=== PATIENT | male | born 1960 | race Caucasian/White ===

== ENCOUNTER 2016-06-07 05:38 | Inpatient (IN) | payer OTHER ==
[2016-06-06 10:37] VITALS: BMI 29.4
[~2016-06-07] VITALS: Ht 165.1 cm; Wt 82.8 kg
[2016-06-07] VITALS (29 sets, daily range): BP systolic 108–154; BP diastolic 61–95; PULSE 67–94; RESP 10–26; Ht 165.1 cm; Wt 82.8 kg
[2016-06-07] MEDS ORDERED: ROCURONIUM 50 MG INJ ONE (07:00)
[2016-06-07] MEDS ORDERED: LISI10TA2 PO (07:09)
[2016-06-07] MEDS ORDERED: LOSA25TA5 PO (07:09)
[2016-06-07] MEDS ORDERED: BUTA1TAB48 PO (07:09)
[2016-06-07] MEDS ORDERED: SUCCINYLCHOLINE CHLORIDE 100 MG/5 ML SYG IV ONE (08:08)
[2016-06-07] MEDS ORDERED: PROPOFOL 20 ML ONE ×3 (08:08→08:33)
[2016-06-07] MEDS ORDERED: MIDAZOLAM 1 MG/ML 2 ML INJ ONE (08:08)
[2016-06-07] MEDS ORDERED: morphine SULFATE/PF (10 MG/10 ML) INJ ONE (08:08)
[2016-06-07] MEDS ORDERED: LIDOCAINE 2% (SDV) 5 ML INJ ONE (08:08)
[2016-06-07] MEDS ORDERED: FENTAnyl 50 MCG/ML VIAL ONE (08:19)
--- NOTE | 2016-06-07 08:32 | HPN ---
Date/Time of Note Date/Time of Note DATE: 06/07/16 TIME: 08:30 Interval H&P Admission Note Pt. seen H&P reviewed: No system changes TEODORO BURGOS MD Jun 07, 2016 08:32
[2016-06-07] MEDS ORDERED: CEFAZOLIN 1 GM INJ ONE (08:44)
[2016-06-07] MEDS ORDERED: POLYMYXIN/BACITRACIN 1L IRRIG IRR ONE (09:26)
[2016-06-07] MEDS ORDERED: EPHEDrine SULFATE 50 MG/5 ML SYG ONE (09:44)
[2016-06-07] MEDS ORDERED: DEXAMETHASONE 4 MG/ML 1 ML INJ ONE (09:46)
[2016-06-07] MEDS ORDERED: METOCLOPRAMIDE 10 MG INJ ONE (09:46)
[2016-06-07] MEDS ORDERED: ONDANSETRON 4 MG INJ ONE (09:46)
[2016-06-07] MEDS ORDERED: NEOSTIGMINE 3 MG/3 ML SYRINGE ONE (10:52)
[2016-06-07] MEDS ORDERED: GLYCOPYRROLATE 1 MG INJ ONE (10:52)
[2016-06-07] MEDS ORDERED: FENTAnyl 50 MCG/ML VIAL IV PRN (11:00)
[2016-06-07] MEDS ORDERED: HYDROmorphONE (0.2 MG/ML) 10ML SYG IV PRN (11:00)
[2016-06-07] MEDS ORDERED: DIPHENHYDRAMINE 50 MG INJ IV PRN ×2 (11:00)
[2016-06-07] MEDS ORDERED: ACETAMINOPHEN 500 MG TAB PO PRN (11:00)
[2016-06-07] MEDS ORDERED: PROCHLORPERAZINE 10 MG INJ IV PRN (11:00)
[2016-06-07] MEDS ORDERED: HYDROCODONE/APAP (5/325) TAB PO PRN (11:00)
[2016-06-07] MEDS ORDERED: ONDANSETRON 4 MG INJ IV PRN ×2 (11:00→17:00)
[2016-06-07] MEDS ORDERED: NALOXONE (0.4 MG/ML) INJ IV PRN (11:00)
[2016-06-07] MEDS ORDERED: MEPERIDINE 25 MG INJ IV PRN (11:00)
[2016-06-07 12:30] LABS: ADD UMIC NO; URINE BILIRUBIN (Dip) NEGATIVE (NEGATIVE); URINE BLOOD (Dip) NEGATIVE (NEGATIVE); URINE COLOR LT. YELLOW (YELLOW); URINE GLUCOSE (Dip) NEGATIVE (NEGATIVE); URINE KETONES (Dip) NEGATIVE (NEGATIVE); URINE LEUKOCYTE ESTERASE (Dip) NEGATIVE (NEGATIVE); URINE NITRITE (Dip) NEGATIVE (NEGATIVE); URINE TOTAL PROTEIN (Dip) NEGATIVE (NEGATIVE); URINE UROBILINOGEN (Dip) 0.2 E.U./dL (0.1-1.0)
[2016-06-07] MEDS ORDERED: DOCUSATE SODIUM 100 MG CAP PO PRN (12:30)
[2016-06-07] MEDS ORDERED: CEFAZOLIN 1 GM/50 ML (PMX) 50 ML IVPB ONE (12:39)
[2016-06-07] MEDS: CEFAZOLIN 1 GM/50 ML (PMX) 50 ML IVPB SCH ×2 (12:42→21:30)
[2016-06-07 12:55] LABS: BASOPHILS % 0.4 % (0.0-2.0); EOSINOPHILS # 0.1 10^3/ul (0.0-0.5); EOSINOPHILS % 1.8 % (0.0-7.0); HEMATOCRIT 39.3 % (42.0-52.0); HEMOGLOBIN 13.2 g/dl (14.0-18.0); LYMPHOCYTES # 1.5 10^3/ul (0.8-2.9); LYMPHOCYTES % 21.8 % (15.0-51.0); MEAN CORPUSCULAR HEMOGLOBIN 30.4 pg (29.0-33.0); MEAN CORPUSCULAR HGB CONC 33.5 g/dl (32.0-37.0); MEAN CORPUSCULAR VOLUME 90.7 fl (82.0-101.0); MEAN PLATELET VOLUME 10.3 fl (7.4-10.4); MONOCYTE # 0.2 10^3/ul (0.3-0.9); MONOCYTES % 3.4 % (0.0-11.0); NEUTROPHIL # 4.9 10^3/ul (1.6-7.5); NEUTROPHILS % 72.6 % (39.0-77.0); PLATELET COUNT 251 10^3/UL (140-440); RED BLOOD COUNT 4.34 10^6/ul (4.70-6.10); RED CELL DISTRIBUTION WIDTH 13.6 % (11.5-14.5); UNCORRECTED WBC 6.8 10^3/ul (4.8-10.8); WHITE BLOOD COUNT 6.8 10^3/ul (4.8-10.8)
[2016-06-07 12:56] LABS: POTASSIUM 4.1 mmol/L (3.5-5.1)
[2016-06-07 12:58] LABS: CONDITION 1
[2016-06-07] MEDS: ASPIRIN 325 MG TAB PO SCH ×2 (13:09→20:51)
[2016-06-07] MEDS: LACTATED RINGER'S 1,000 ML IV* SCH ×2 (13:47→23:49)
--- NOTE | 2016-06-07 14:14 | RADRPT ---
PROCEDURE: XR right knee. CLINICAL INDICATION: Knee pain. TECHNIQUE: AP and lateral views are available for review. COMPARISON: No comparison available FINDINGS: There is an external brace in place. There is a postoperative total knee replacement. There is no evidence of loosening of the prosthesis . The osseous structures are normal in mineralization, architecture and alignment No acute fracture or dislocation is seen.No osseous lesions are identified. There are postoperative soft tissue spaulding es . There are [address] IMPRESSION: Unremarkable postoperative total knee replacement. Postoperative soft tissue changes RPTAT: HGDB .Kurt Cabrera MD, Date Time Electronically viewed and signed by .Kurt Cabrera MD, on 06/07/2016 14:14 .B/
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
[2016-06-07] MEDS ORDERED: ACET/BUTAL/CAFF TAB PO PRN (15:00)
[2016-06-07] MEDS ORDERED: NALBUPHINE HCL (10 MG/1 ML) INJ IV PRN (17:00)
[2016-06-07] MEDS ORDERED: HYDROmorphONE 1 MG/ML SYG IV PRN (17:00)
[2016-06-07] MEDS: HYDROmorphONE 1 MG/ML SYG IV PRN ×2 (17:22→23:48)
[2016-06-08] MEDS: HYDROmorphONE 1 MG/ML SYG IV PRN ×7 (04:20→22:46)
[2016-06-08 05:00] VITALS: BP 112/74; PULSE 65; RESP 18
[2016-06-08 05:04] LABS: BASOPHILS % 0.4 % (0.0-2.0); HEMATOCRIT 32.9 % (42.0-52.0); HEMOGLOBIN 10.9 g/dl (14.0-18.0); LYMPHOCYTES # 1.5 10^3/ul (0.8-2.9); LYMPHOCYTES % 15.6 % (15.0-51.0); MEAN CORPUSCULAR HEMOGLOBIN 30.4 pg (29.0-33.0); MEAN CORPUSCULAR HGB CONC 33.3 g/dl (32.0-37.0); MEAN CORPUSCULAR VOLUME 91.3 fl (82.0-101.0); MEAN PLATELET VOLUME 10.9 fl (7.4-10.4); MONOCYTE # 1.1 10^3/ul (0.3-0.9); MONOCYTES % 11.3 % (0.0-11.0); NEUTROPHIL # 7.1 10^3/ul (1.6-7.5); NEUTROPHILS % 72.7 % (39.0-77.0); PLATELET COUNT 241 10^3/UL (140-440); RED CELL DISTRIBUTION WIDTH 13.4 % (11.5-14.5); UNCORRECTED WBC 9.8 10^3/ul (4.8-10.8); WHITE BLOOD COUNT 9.8 10^3/ul (4.8-10.8)
[2016-06-08 05:20] LABS: POTASSIUM 4.5 mmol/L (3.5-5.1)
[2016-06-08 05:28] LABS: CONDITION 1
[2016-06-08] MEDS: CEFAZOLIN 1 GM/50 ML (PMX) 50 ML IVPB SCH (05:54)
[2016-06-08] MEDS: PANTOPRAZOLE (EC) 40 MG TAB PO SCH (05:54)
[2016-06-08 07:52] VITALS: BP 106/56; RESP 20
[2016-06-08] MEDS: LACTATED RINGER'S 1,000 ML IV* SCH (08:30)
[2016-06-08] MEDS ORDERED: HYDROmorphONE 1 MG/ML SYG IV STA (08:54)
[2016-06-08] MEDS ORDERED: DIPHENHYDRAMINE 50 MG INJ IV ONE (09:00)
[2016-06-08] MEDS: LOSARTAN 25 MG TAB PO SCH (09:00)
[2016-06-08] MEDS: ASPIRIN 325 MG TAB PO SCH ×2 (10:22→20:49)
[2016-06-08] MEDS ORDERED: HYDROmorphONE 1 MG/ML SYG IV PRN (13:00)
[2016-06-08] MEDS: OXYCODONE/ACETAMINOPHEN (5/325) TAB PO PRN ×2 (18:04→23:28)
--- NOTE | 2016-06-08 18:43 | CONS ---
Date/Time of Note Date/Time of Note DATE: 06/08/16 TIME: 18:38 Assessment/Plan Assessment/Plan Problems: (1) Anemia Status: Acute Comment: Drop in H/H after surgery likely cause of lightheadedness. Denies chest pain. Will monitor and transfuse if levels continue to drop Qualifiers: Anemia type: other cause (2) Essential (primary) hypertension Status: Chronic Comment: Decent blood pressure control. No documented low BP (3) Post-traumatic osteoarthritis of right knee Status: Resolved (4) Aftercare following right knee joint replacement surgery Status: Acute Comment: Pain management and PT per orthopedic team. Consultation Date/Type/Reason Admit Date/Time Jun 07, 2016 at 05:38 Initial Consult Date 06/07/16 Type of Consultation: Medicine Referring Provider: TEODORO BURGOS MD 24 HR Interval Summary Free Text/Dictation C/O significant throbbing knee pain. Also lightheaded during physical therapy today. States blood pressure low and unable to walk Exam/Review of Systems Vital Signs Vitals Vital Signs Date Time Temp Pulse Resp B/P Pulse Ox O2 Delivery O2 Flow Rate FiO2 06/08/16 08:00 Nasal Cannula 2.0 06/08/16 07:52 97.3 75 20 106/56 96 Intake and Output 06/07/16 06/07/16 06/08/16 15:00 23:00 07:00 Intake Total 2700 ml 400 ml 1500 ml Output Total 1330 ml 1400 ml 1010 ml Balance 1370 ml -1000 ml 490 ml Exam Constitutional: alert, oriented, well developed Neck: supple Respiratory: clear to auscultation Cardiovascular: nl pulses, regular rate and rhythm Gastrointestinal: soft Musculoskeletal: other (Right lower extremity in bandage and brace.) Results Vitals and Labs reviewed Result Diagram: 06/08/16 0435 06/08/16 0435 Results 24 hrs Laboratory Tests Test 06/08/16 04:35 Anion Gap 16 Basophils # 0.0 Basophils % 0.4 Blood Morphology Comment Carbon Dioxide Level 25 Chloride Level 105 Eosinophils # 0.0 Eosinophils % 0.0 Hematocrit 32.9 L Hemoglobin 10.9 L Lymphocytes # 1.5 Lymphocytes % 15.6 Mean Corpuscular Hemoglobin 30.4 Mean Corpuscular Hemoglobin Concent 33.3 Mean Corpuscular Volume 91.3 Mean Platelet Volume 10.9 H Monocytes # 1.1 H Monocytes % 11.3 H Neutrophils # 7.1 Neutrophils % 72.7 Nucleated Red Blood Cells # 0.0 Nucleated Red Blood Cells % 0.0 Platelet Count 241 Potassium Level 4.5 Red Blood Count 3.60 L Red Cell Distribution Width 13.4 Sodium Level 141 White Blood Count 9.8 # Medications Medications Current Medications Aspirin (Aspirin) 325 mg BID PO Last administered on 06/08/16 10:22; Admin Dose 325 MG; Start 06/07/16 at 12:45 Oxycodone/ Acetaminophen (Percocet (5/ 325)) 1 tab Q4H PRN PO PAIN Last administered on 06/08/16 18:04; Admin Dose 1 TAB; Start 06/07/16 at 12:30 Docusate Sodium (Colace) 100 mg TID PRN PO CONSTIPATION; Start 06/07/16 at 12: 30 Losartan Potassium (Cozaar) 25 mg DAILY PO ; Start 06/08/16 at 09:00 Pantoprazole (Protonix Tab) 40 mg DAILY@06 PO Last administered on 06/08/16 05 :54; Admin Dose 40 MG; Start 06/08/16 at 06:00 Acetaminophen/ Butalbital/ Caffeine (Fioricet) 2 tab Q4H PRN PO HEADACHE; Start 06/07/16 at 15:00 Hydromorphone HCl (Dilaudid) 0.4 mg Q2H PRN IV PAIN LEVEL 1-5; Start 06/08/16 at 13:00; Stop 06/09/16 at 12:59 Hydromorphone HCl (Dilaudid) 0.6 mg Q2H PRN IV SEVERE PAIN LEVEL 7-10 Last administered on 06/08/16 16:22; Admin Dose 0.6 MG; Start 06/08/16 at 13:00; Stop 06/09/16 at 12:59 IRIS ODELL MD Jun 08, 2016 18:43
[2016-06-08 20:00] VITALS: BP 124/71; RESP 16
[2016-06-08 23:16] VITALS: BP 143/73; RESP 18
[2016-06-09] MEDS: HYDROmorphONE 1 MG/ML SYG IV PRN ×8 (01:16→22:58)
[2016-06-09] MEDS: PANTOPRAZOLE (EC) 40 MG TAB PO SCH (05:42)
[2016-06-09 06:49] LABS: BASOPHILS % 0.3 % (0.0-2.0); EOSINOPHILS # 0.3 10^3/ul (0.0-0.5); HEMATOCRIT 30.3 % (42.0-52.0); HEMOGLOBIN 10.1 g/dl (14.0-18.0); LYMPHOCYTES # 2.7 10^3/ul (0.8-2.9); LYMPHOCYTES % 29.5 % (15.0-51.0); MEAN CORPUSCULAR HEMOGLOBIN 30.7 pg (29.0-33.0); MEAN CORPUSCULAR HGB CONC 33.5 g/dl (32.0-37.0); MEAN CORPUSCULAR VOLUME 91.6 fl (82.0-101.0); MEAN PLATELET VOLUME 10.8 fl (7.4-10.4); MONOCYTES % 10.9 % (0.0-11.0); NEUTROPHIL # 5.1 10^3/ul (1.6-7.5); NEUTROPHILS % 56.3 % (39.0-77.0); PLATELET COUNT 230 10^3/UL (140-440); RED BLOOD COUNT 3.31 10^6/ul (4.70-6.10); RED CELL DISTRIBUTION WIDTH 13.5 % (11.5-14.5)
[2016-06-09 07:12] LABS: CONDITION 1
[2016-06-09 07:37] VITALS: BP 143/77; RESP 18
[2016-06-09 08:00] VITALS: BP 120/70; PULSE 78; RESP 22
[2016-06-09] MEDS: ASPIRIN 325 MG TAB PO SCH ×2 (08:09→21:21)
[2016-06-09] MEDS: LOSARTAN 25 MG TAB PO SCH (08:47)
[2016-06-09] MEDS ORDERED: ONDANSETRON 4 MG INJ IV PRN ×2 (11:30→12:00)
[2016-06-09] MEDS ORDERED: HYDROmorphONE 1 MG/ML SYG IV STA ×2 (13:29→16:57)
[2016-06-09] MEDS ORDERED: HYDROmorphONE 1 MG/ML SYG IV PRN ×3 (13:30)
--- NOTE | 2016-06-09 17:45 | CONS ---
Date/Time of Note Date/Time of Note DATE: 06/09/16 TIME: 14:15 Assessment/Plan Assessment/Plan Problems: (1) Essential (primary) hypertension Status: Chronic Comment: Good control. No hypotension noted (2) Aftercare following right knee joint replacement surgery Status: Acute Comment: Suspect patients expectations of post op well being are unrealistic. Complain of unrelenting pain. Drain removed by Orthopedist (3) Anemia Status: Acute Comment: H/H stable. No evidence of further blood loss. Qualifiers: Anemia type: other cause Consultation Date/Type/Reason Admit Date/Time Jun 07, 2016 at 05:38 Initial Consult Date 06/07/16 Type of Consultation: Medicine Referring Provider: TEODORO BURGOS MD 24 HR Interval Summary Free Text/Dictation Patient with nausea after getting dose of pain medication. Does not feel well in general. Feels weak. Exam/Review of Systems Vital Signs Vitals Vital Signs Date Time Temp Pulse Resp B/P Pulse Ox O2 Delivery O2 Flow Rate FiO2 06/09/16 08:00 Nasal Cannula 2.0 06/09/16 08:00 98.2 78 22 120/70 98 Intake and Output 06/08/16 06/08/16 06/09/16 15:00 23:00 07:00 Intake Total 800 ml 1200 ml Output Total 120 ml 1190 ml Balance 680 ml 10 ml Exam Constitutional: alert, oriented, well developed Neck: supple Respiratory: clear to auscultation Cardiovascular: nl pulses, regular rate and rhythm Gastrointestinal: soft Musculoskeletal: nl extremities to inspection Extremities: normal pulses Results Labs and vitals reviewed Result Diagram: 06/09/16 0449 06/09/16 0449 Results 24 hrs Laboratory Tests Test 06/09/16 04:49 Anion Gap 12 Basophils # 0.0 Basophils % 0.3 Blood Morphology Comment Carbon Dioxide Level 32 H Chloride Level 100 Eosinophils # 0.3 Eosinophils % 3.0 Hematocrit 30.3 L Hemoglobin 10.1 L Lymphocytes # 2.7 Lymphocytes % 29.5 Mean Corpuscular Hemoglobin 30.7 Mean Corpuscular Hemoglobin Concent 33.5 Mean Corpuscular Volume 91.6 Mean Platelet Volume 10.8 H Monocytes # 1.0 H Monocytes % 10.9 Neutrophils # 5.1 Neutrophils % 56.3 Nucleated Red Blood Cells # 0.0 Nucleated Red Blood Cells % 0.0 Platelet Count 230 Potassium Level 4.0 Red Blood Count 3.31 L Red Cell Distribution Width 13.5 Sodium Level 140 White Blood Count 9.0 Medications Medications Current Medications Aspirin (Aspirin) 325 mg BID PO Last administered on 06/09/16 08:09; Admin Dose 325 MG; Start 06/07/16 at 12:45 Oxycodone/ Acetaminophen (Percocet (5/ 325)) 1 tab Q4H PRN PO PAIN Last administered on 06/08/16 23:28; Admin Dose 1 TAB; Start 06/07/16 at 12:30 Docusate Sodium (Colace) 100 mg TID PRN PO CONSTIPATION; Start 06/07/16 at 12: 30 Losartan Potassium (Cozaar) 25 mg DAILY PO Last administered on 06/09/16 08:47 ; Admin Dose 25 MG; Start 06/08/16 at 09:00 Pantoprazole (Protonix Tab) 40 mg DAILY@06 PO Last administered on 06/09/16 05 :42; Admin Dose 40 MG; Start 06/08/16 at 06:00 Acetaminophen/ Butalbital/ Caffeine (Fioricet) 2 tab Q4H PRN PO HEADACHE; Start 06/07/16 at 15:00 Ondansetron HCl (Zofran Inj) 4 mg Q8 PRN IV NAUSEA AND/OR VOMITING Last administered on 06/09/16 16:07; Admin Dose 4 MG; Start 06/09/16 at 12:00 Hydromorphone HCl (Dilaudid) 0.4 mg Q2H PRN IV PAIN LEVEL 1-5; Start 06/09/16 at 13:30 Hydromorphone HCl (Dilaudid) 0.6 mg Q2H PRN IV PAIN LEVEL 6-10 Last administered on 06/09/16 16:03; Admin Dose 0.6 MG; Start 06/09/16 at 15:30 IRIS ODELL MD Jun 09, 2016 17:45
[2016-06-09] MEDS ORDERED: BISACODYL 10 MG SUPP PR PRN (19:00)
[2016-06-09] MEDS ORDERED: MAGNESIUM HYDROXIDE 30ML CUP PO PRN (19:00)
[2016-06-09 19:49] VITALS: BP 126/76; RESP 18
[2016-06-09] MEDS ORDERED: LACTULOSE 30ML CUP PO PRN (22:00)
[2016-06-09] MEDS ORDERED: LACTULOSE 30ML CUP PO SCH (22:00)
[2016-06-09] MEDS: ONDANSETRON 4 MG INJ IV PRN (22:58)
[2016-06-10] MEDS: PANTOPRAZOLE (EC) 40 MG TAB PO SCH (05:17)
[2016-06-10 05:37] LABS: POTASSIUM 3.8 mmol/L (3.5-5.1)
[2016-06-10] MEDS: HYDROmorphONE 1 MG/ML SYG IV PRN ×3 (06:05→23:39)
[2016-06-10] MEDS: ONDANSETRON 4 MG INJ IV PRN ×3 (06:05→23:39)
[2016-06-10 06:37] LABS: BASOPHILS % 0.3 % (0.0-2.0); EOSINOPHILS # 0.4 10^3/ul (0.0-0.5); EOSINOPHILS % 4.1 % (0.0-7.0); LYMPHOCYTES # 2.3 10^3/ul (0.8-2.9); LYMPHOCYTES % 25.8 % (15.0-51.0); MEAN CORPUSCULAR HEMOGLOBIN 30.7 pg (29.0-33.0); MEAN CORPUSCULAR HGB CONC 33.4 g/dl (32.0-37.0); MEAN CORPUSCULAR VOLUME 91.7 fl (82.0-101.0); MEAN PLATELET VOLUME 10.7 fl (7.4-10.4); MONOCYTE # 0.4 10^3/ul (0.3-0.9); MONOCYTES % 5.1 % (0.0-11.0); NEUTROPHIL # 5.7 10^3/ul (1.6-7.5); NEUTROPHILS % 64.7 % (39.0-77.0); PLATELET COUNT 218 10^3/UL (140-440); RED BLOOD COUNT 3.59 10^6/ul (4.70-6.10); RED CELL DISTRIBUTION WIDTH 13.3 % (11.5-14.5); UNCORRECTED WBC 8.8 10^3/ul (4.8-10.8); WHITE BLOOD COUNT 8.8 10^3/ul (4.8-10.8)
[2016-06-10 06:39] LABS: CONDITION 1
[2016-06-10] MEDS: ASPIRIN 325 MG TAB PO SCH ×2 (08:24→21:45)
[2016-06-10] MEDS: LOSARTAN 25 MG TAB PO SCH (08:24)
[2016-06-10 09:06] VITALS: BP 112/67; RESP 18
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
[2016-06-10] MEDS ORDERED: METHYLNALTREXONE 12 MG/0.6 ML VIAL SC ONE (13:00)
--- NOTE | 2016-06-10 14:14 | CONS ---
Date/Time of Note Date/Time of Note DATE: 06/10/16 TIME: 14:10 Assessment/Plan Assessment/Plan Problems: (1) Drug-induced constipation Status: Acute Comment: Trial of relistor 12 mg sq x 1 (2) Essential (primary) hypertension Status: Chronic Comment: Controlled w/ BP meds (3) Gastro-esophageal reflux disease without esophagitis Status: Chronic Comment: Cont. PPI (4) Aftercare following right knee joint replacement surgery Status: Acute Comment: Doing fair POD#3. Doubt ready for d/c but will defer to primary team. May need time in rehab but given complicating ortho comorbidities ( shoulder, lumbar spine, R ankle) doubt rehab would be highly effective. Consultation Date/Type/Reason Admit Date/Time Jun 07, 2016 at 05:38 Initial Consult Date 06/07/16 Type of Consultation: Medicine Reason for Consultation Medical management Referring Provider: TEODORO BURGOS MD 24 HR Interval Summary Constitutional: improved, no complaints Detailed Summary Respiratory: no complaints Cardiovascular: other (feels BP went low during PT) Gastrointestinal: constipation, other (distended), pain, No passing stool Genitourinary: no complaints Musculoskeletal: bone/joint pain (R knee pain) Neurologic: no complaints Exam/Review of Systems Vital Signs Vitals VS - Last 72 Hours, by Label Date Time Temp Pulse Resp B/P Pulse Ox O2 Delivery O2 Flow Rate FiO2 06/10/16 09:06 97.8 103 18 112/67 92 06/10/16 06:08 99.8 06/09/16 19:49 98.2 18 126/76 97 06/09/16 08:00 Nasal Cannula 2.0 06/09/16 08:00 98.2 78 22 120/70 98 Nasal Cannula 2.0 06/09/16 07:37 98.0 85 18 143/77 96 06/08/16 23:16 99.1 86 18 143/73 96 06/08/16 21:05 Nasal Cannula 2.0 06/08/16 20:00 98.6 89 16 124/71 98 06/08/16 08:00 Nasal Cannula 2.0 06/08/16 07:52 97.3 75 20 106/56 96 06/08/16 05:00 98.1 65 18 112/74 97 Nasal Cannula 2.0 06/07/16 23:51 98.2 76 20 116/72 98 06/07/16 21:00 Nasal Cannula 2.0 06/07/16 20:26 98.6 83 20 113/66 96 06/07/16 17:00 83 18 108/61 98 Nasal Cannula 2.0 06/07/16 16:00 84 18 110/63 98 Nasal Cannula 2.0 06/07/16 15:30 88 18 111/64 98 Nasal Cannula 2.0 06/07/16 15:00 87 18 118/67 98 Nasal Cannula 2.0 06/07/16 14:45 88 18 110/63 98 Nasal Cannula 2.0 06/07/16 14:15 88 18 111/64 98 Nasal Cannula 2.0 Vital Signs Date Time Temp Pulse Resp B/P Pulse Ox O2 Delivery O2 Flow Rate FiO2 06/10/16 09:06 97.8 103 18 112/67 92 06/09/16 08:00 Nasal Cannula 2.0 Intake and Output 06/09/16 06/09/16 06/10/16 15:00 23:00 07:00 Intake Total 800 ml 400 ml Output Total 10 ml 1350 ml 800 ml Balance -10 ml -550 ml -400 ml Exam Constitutional: alert, oriented, well developed Psych: nl mood/affect, no complaints Respiratory: clear to auscultation, normal air movement Cardiovascular: nl pulses, regular rate and rhythm, No edema, No murmurs/extra sounds, No rub Gastrointestinal: bowel sounds, nl liver, spleen, non-tender, soft, No mass, No rebound or guarding Extremities: normal pulses, No clubbing, No cyanosis, No edema Neurological: STRAWHAT BLOCKING OPERATOR II-XII intact, nl mental status, nl speech, nl strength Results Result Diagram: 06/10/164 06/10/164 Results 24 hrs Laboratory Tests Test 06/10/16 04:14 Anion Gap 13 Basophils # 0.0 Basophils % 0.3 Blood Morphology Comment Carbon Dioxide Level 31 Chloride Level 98 Eosinophils # 0.4 Eosinophils % 4.1 Hematocrit 33.0 L Hemoglobin 11.0 L Lymphocytes # 2.3 Lymphocytes % 25.8 Mean Corpuscular Hemoglobin 30.7 Mean Corpuscular Hemoglobin Concent 33.4 Mean Corpuscular Volume 91.7 Mean Platelet Volume 10.7 H Monocytes # 0.4 Monocytes % 5.1 Neutrophils # 5.7 Neutrophils % 64.7 Nucleated Red Blood Cells # 0.0 Nucleated Red Blood Cells % 0.0 Platelet Count 218 Potassium Level 3.8 Red Blood Count 3.59 L Red Cell Distribution Width 13.3 Sodium Level 138 White Blood Count 8.8 Medications Medications Current Medications Aspirin (Aspirin) 325 mg BID PO Last administered on 06/10/16 08:24; Admin Dose 325 MG; Start 06/07/16 at 12:45 Oxycodone/ Acetaminophen (Percocet (5/ 325)) 1 tab Q4H PRN PO PAIN Last administered on 06/08/16 23:28; Admin Dose 1 TAB; Start 06/07/16 at 12:30 Docusate Sodium (Colace) 100 mg TID PRN PO CONSTIPATION; Start 06/07/16 at 12: 30 Losartan Potassium (Cozaar) 25 mg DAILY PO Last administered on 06/10/16 08:24 ; Admin Dose 25 MG; Start 06/08/16 at 09:00 Pantoprazole (Protonix Tab) 40 mg DAILY@06 PO Last administered on 06/10/16 05 :17; Admin Dose 40 MG; Start 06/08/16 at 06:00 Acetaminophen/ Butalbital/ Caffeine (Fioricet) 2 tab Q4H PRN PO HEADACHE; Start 06/07/16 at 15:00 Hydromorphone HCl (Dilaudid) 0.4 mg Q2H PRN IV PAIN LEVEL 1-5; Start 06/09/16 at 13:30 Hydromorphone HCl (Dilaudid) 0.6 mg Q2H PRN IV PAIN LEVEL 6-10 Last administered on 06/10/16 10:34; Admin Dose 0.6 MG; Start 06/09/16 at 15:30 Lactulose (Enulose) 10 gm Q8 PRN PO CONSTIPATION; Start 06/09/16 at 22:00 Magnesium Hydroxide (Milk Of Mag) 30 ml DAILY PRN PO CONSTIPATION Last administered on 06/09/16 21:22; Admin Dose 30 ML; Start 06/09/16 at 19:00 Bisacodyl (Dulcolax Supp) 10 mg DAILY PRN [place] CONSTIPATION Last administered on 06/10/16 11:48; Admin Dose 10 MG; Start 06/09/16 at 19:00 Ondansetron HCl (Zofran Inj) 4 mg Q4H PRN IV NAUSEA AND/OR VOMITING Last administered on 06/10/16t 10:33; Admin Dose 4 MG; Start 06/09/16 at 23:00 SERGEY VELIZ MD Jun 10, 2016 14:14
[2016-06-10 19:43] VITALS: BP 124/75; RESP 18
[2016-06-10] MEDS: OXYCODONE/ACETAMINOPHEN (5/325) TAB PO PRN (21:46)
[2016-06-11 05:42] LABS: POTASSIUM 4.2 mmol/L (3.5-5.1)
[2016-06-11] MEDS: PANTOPRAZOLE (EC) 40 MG TAB PO SCH (06:01)
[2016-06-11] MEDS: OXYCODONE/ACETAMINOPHEN (5/325) TAB PO PRN ×2 (06:02→10:48)
[2016-06-11 06:40] LABS: BASOPHILS % 0.2 % (0.0-2.0); EOSINOPHILS # 0.5 10^3/ul (0.0-0.5); EOSINOPHILS % 3.6 % (0.0-7.0); HEMATOCRIT 28.1 % (42.0-52.0); HEMOGLOBIN 9.4 g/dl (14.0-18.0); LYMPHOCYTES # 2.6 10^3/ul (0.8-2.9); LYMPHOCYTES % 19.7 % (15.0-51.0); MEAN CORPUSCULAR HEMOGLOBIN 30.5 pg (29.0-33.0); MEAN CORPUSCULAR HGB CONC 33.6 g/dl (32.0-37.0); MEAN CORPUSCULAR VOLUME 90.8 fl (82.0-101.0); MEAN PLATELET VOLUME 10.6 fl (7.4-10.4); MONOCYTE # 0.7 10^3/ul (0.3-0.9); MONOCYTES % 5.5 % (0.0-11.0); NEUTROPHIL # 9.3 10^3/ul (1.6-7.5); PLATELET COUNT 222 10^3/UL (140-440); RED CELL DISTRIBUTION WIDTH 12.9 % (11.5-14.5); UNCORRECTED WBC 13.1 10^3/ul (4.8-10.8); WHITE BLOOD COUNT 13.1 10^3/ul (4.8-10.8)
[2016-06-11 07:05] LABS: CONDITION 1
[2016-06-11] MEDS: ONDANSETRON 4 MG INJ IV PRN (07:11)
[2016-06-11] MEDS: HYDROmorphONE 1 MG/ML SYG IV PRN (07:12)
[2016-06-11] MEDS: LOSARTAN 25 MG TAB PO SCH (08:30)
[2016-06-11] MEDS: ASPIRIN 325 MG TAB PO SCH (08:30)
[2016-06-11 08:34] VITALS: BP 115/70; RESP 16
--- NOTE | 2016-06-11 15:03 | DS ---
DATE OF ADMISSION: 06/07/2016 DATE OF DISCHARGE: 06/11/2016 This 55-year-old male was admitted to the hospital for surgical management of arthritis of the right knee which has not responded to conservative care. He is scheduled for total knee replacement on t he right side. HOSPITAL COURSE: Preoperatively, the patient had been seen and cleared for surgical intervention by an medical cash poster. Procedure was done on 06/07/2016 under spinal and general. Anesthesiologist was Dr. Burnett. The patient was given preoperative antibiotic and surgery was assisted Corry KAYLEE Fierro. Elvis gical time was 1 or 2 minutes, 250 mmHg, no intra- or postop complications. Postoperatively, the pa tient was managed with daily monitoring intake and output and also used a drain and a daily Ancef 1 gram q.8h. Hemovac was discontinued the second postoperative day. The patient started on physical therapy for ambulation and using knee immobilizer. Had postoperative x-rays which shows good positi oning of components in the right knee. He has also managed with the use of aspirin as a prophylacti c agent b.i.d., 325 mg. CPM was started after discontinuation of [place] and drain of the right knee. On the second postoperative day, the patient was to start ambulation. He had no significant posto p complication. At the time of discharge, the patient, according to the physical therapist, was ind ependent in ambulation. is okay with no significant swelling or erythema, no tenderness of th e right calf, negative Homans sign. At time of discharge, the patient's discharge plan was discusse d with physical therapist and nurse with the help of an diplomatic interpreter/translator. The patient was guided to use CPM 2 hours 3 times a day, ambulate with walker, and use knee support while ambulating. Arrangement has been made for patient to have nursing care at home to do a checkup on him. Also, PT at home, C PM to use at home, increasing number by 10 to 15 degrees today. Patient will be prescribed Percocet 5/325 mg to take 1 q.6h. p.r.n. for pain and continuation of aspirin 325 mg b.i.d. and follow up in approximately 9 days. All issues related to postop care were explained to the patient and also ins truction was given for physical therapist to give patient safety instructions for transfers and ambu lation. CONDITION ON DISCHARGE: Improved. DIAGNOSIS: Arthritis of right knee status post total knee replacement, right. Dictated By: TEODORO BURGOS MD, SA/NENA Conf#: [id number] DID#: [id number]
--- NOTE | 2016-06-11 17:56 | CONS ---
Date/Time of Note Date/Time of Note DATE: 06/11/16 TIME: 17:52 Assessment/Plan Assessment/Plan Problems: (1) Essential (primary) hypertension Status: Chronic Comment: Doing well on home BP meds. Cont. on d/c. (2) Gastro-esophageal reflux disease without esophagitis Status: Chronic Comment: Doing well on PPI. Cont. on d/c. (3) Drug-induced constipation Status: Resolved Comment: Relistor effective. (4) Aftercare following right knee joint replacement surgery Status: Acute Comment: Pt. doing well POD#4. Ok for d/c from med standpoint. Consultation Date/Type/Reason Admit Date/Time Jun 07, 2016 at 05:38 Initial Consult Date 06/07/16 Type of Consultation: Medicine Reason for Consultation Medical management Referring Provider: TEODORO BURGOS MD 24 HR Interval Summary Constitutional: improved, no complaints Detailed Summary Respiratory: no complaints Cardiovascular: no complaints Gastrointestinal: no complaints, No constipation (improved significantly after relistor) Genitourinary: no complaints Musculoskeletal: no complaints Neurologic: no complaints Exam/Review of Systems Vital Signs Vitals VS - Last 72 Hours, by Label Date Time Temp Pulse Resp B/P Pulse Ox O2 Delivery O2 Flow Rate FiO2 06/11/16 08:34 98.5 87 16 115/70 95 06/10/16 19:43 98.4 92 18 124/75 97 06/10/16 09:06 97.8 103 18 112/67 92 06/10/16 06:08 99.8 06/09/16 19:49 98.2 18 126/76 97 06/09/16 08:00 Nasal Cannula 2.0 06/09/16 08:00 98.2 78 22 120/70 98 Nasal Cannula 2.0 06/09/16 07:37 98.0 85 18 143/77 96 06/08/16 23:16 99.1 86 18 143/73 96 06/08/16 21:05 Nasal Cannula 2.0 06/08/16 20:00 98.6 89 16 124/71 98 Vital Signs Date Time Temp Pulse Resp B/P Pulse Ox O2 Delivery O2 Flow Rate FiO2 06/11/16 08:34 98.5 87 16 115/70 95 06/09/16 08:00 Nasal Cannula 2.0 Intake and Output 206/10/16 06/11/16 14:59 22:59 06:59 Intake Total 600 ml 500 ml Output Total 425 ml 950 ml Balance 175 ml -450 ml Exam Constitutional: alert, oriented, well developed Psych: nl mood/affect, no complaints Respiratory: clear to auscultation, normal air movement Cardiovascular: nl pulses, regular rate and rhythm, No edema, No murmurs/extra sounds, No rub Gastrointestinal: bowel sounds, nl liver, spleen, non-tender, soft, No mass, No rebound or guarding Musculoskeletal: nl extremities to inspection Extremities: normal pulses, No clubbing, No cyanosis, No edema Neurological: SITE SUPERVISING TECHNICAL OPERATOR II-XII intact, nl mental status, nl speech, nl strength Results Result Diagram: 06/11/16 0500 06/11/16 0500 Results 24 hrs Laboratory Tests Test 06/11/16 05:00 Anion Gap 12 Basophils # 0.0 Basophils % 0.2 Blood Morphology Comment Carbon Dioxide Level 31 Chloride Level 102 Eosinophils # 0.5 Eosinophils % 3.6 Hematocrit 28.1 L Hemoglobin 9.4 L Lymphocytes # 2.6 Lymphocytes % 19.7 Mean Corpuscular Hemoglobin 30.5 Mean Corpuscular Hemoglobin Concent 33.6 Mean Corpuscular Volume 90.8 Mean Platelet Volume 10.6 H Monocytes # 0.7 Monocytes % 5.5 Neutrophils # 9.3 H Neutrophils % 71.0 Nucleated Red Blood Cells # 0.0 Nucleated Red Blood Cells % 0.0 Platelet Count 222 Potassium Level 4.2 Red Blood Count 3.10 L Red Cell Distribution Width 12.9 Sodium Level 141 White Blood Count 13.1 #H Medications Medications Current Medications Aspirin (Aspirin) 325 mg BID PO Last administered on 06/11/16 08:30; Admin Dose 325 MG; Start 06/07/16 at 12:45 Oxycodone/ Acetaminophen (Percocet (5/ 325)) 1 tab Q4H PRN PO PAIN Last administered on 06/11/16 10:48; Admin Dose 1 TAB; Start 06/07/16 at 12:30 Docusate Sodium (Colace) 100 mg TID PRN PO CONSTIPATION; Start 06/07/16 at 12: 30 Losartan Potassium (Cozaar) 25 mg DAILY PO Last administered on 06/11/16 08:30 ; Admin Dose 25 MG; Start 06/08/16 at 09:00 Pantoprazole (Protonix Tab) 40 mg DAILY@06 PO Last administered on 06/11/16 06 :01; Admin Dose 40 MG; Start 06/08/16 at 06:00 Acetaminophen/ Butalbital/ Caffeine (Fioricet) 2 tab Q4H PRN PO HEADACHE; Start 06/07/16 at 15:00 Hydromorphone HCl (Dilaudid) 0.4 mg Q2H PRN IV PAIN LEVEL 1-5; Start 06/09/16 at 13:30 Hydromorphone HCl (Dilaudid) 0.6 mg Q2H PRN IV PAIN LEVEL 6-10 Last administered on 06/11/16 07:12; Admin Dose 0.6 MG; Start 06/09/16 at 15:30 Lactulose (Enulose) 10 gm Q8 PRN PO CONSTIPATION Last administered on 10:48; Admin Dose 10 GM; Start 06/09/16 at 22:00 Magnesium Hydroxide (Milk Of Mag) 30 ml DAILY PRN PO CONSTIPATION Last administered on 06/09/16 21:22; Admin Dose 30 ML; Start 06/09/16 at 19:00 Bisacodyl (Dulcolax Supp) 10 mg DAILY PRN [place] CONSTIPATION Last administered on 06/10/16 11:48; Admin Dose 10 MG; Start 06/09/16 at 19:00 Ondansetron HCl (Zofran Inj) 4 mg Q4H PRN IV NAUSEA AND/OR VOMITING Last administered on 06/11/16 07:11; Admin Dose 4 MG; Start 06/09/16 at 23:00 SERGEY VELIZ MD Jun 11, 2016 17:56
== END 2016-06-11 17:30 | disposition home health service (06) | DRG 470 ==
LOC: REC 05:38 → MS1 13:30
PROVIDERS: ADMIT Orthopaedic Surgery; ATTEND Orthopaedic Surgery
PROC: 0SRC0J9 Replacement of Right Knee Joint with Synthetic Substitute, Cemented, Open Approach (ICD-10-PCS; principal; 2016-06-07 08:00)
DX: M17.11 Unilateral primary osteoarthritis, right knee (principal); I10 Essential (primary) hypertension; K21.9 Gastro-esophageal reflux disease without esophagitis; G44.321 Chronic post-traumatic headache, intractable; D64.9 Anemia, unspecified; Z87.891 Personal history of nicotine dependence
CPT/HCPCS: 73560; 80051; 81003; 85025; 87086; 97110; 97116; 97162; 97530; J0330; J0690; J1100; J1170; J1200; J2250; J2274; J2405; J2710; J2765; J3010; J7120